=== PATIENT | female | born 1955 | race Caucasian/White ===

== ENCOUNTER → 2022-06-18 | Outpatient (CLI) | payer BC | LOC: PET 10:15 | PROVIDERS: ATTEND Family Medicine | DX: R91.1 Solitary pulmonary nodule (principal) | CPT/HCPCS: 78815; A9552 ==

== ENCOUNTER 2023-05-17 | Outpatient (CLI) | payer BC | END 2023-05-17 08:39 | disposition home or self-care (01) | DX: Z12.31 Encounter for screening mammogram for malignant neoplasm of breast (principal); Z80.3 Family history of malignant neoplasm of breast; Z91.89 Other specified personal risk factors, not elsewhere classified ==

== ENCOUNTER 2023-10-01 10:52 | Outpatient (CLI) | payer MEDICARE, OTHER ==
[2023-10-01 12:43] LABS: #Basophils 0.04 10x3/uL (0.0-0.2); #Eosinphils 0.13 10x3/uL (0.0-0.5); #Monocytes 0.39 10x3/uL (0.0-1.1); %Basophils 0.6 % (0.0-2.0); %Eosinophils 1.9 % (0.0-6.0); %Lymphocytes 33.9 % (18.0-47.0); %Monocytes 5.6 % (0.0-10.0); %Neutrophils 57.4 % (40.0-75.0); Hematocrit 40.7 % (34.9-44.5); Hemoglobin 14.2 g/dL (12.0-15.5); Mean Corpuscular HGB CONC 34.9 g/dL (32.0-36.0); Mean Corpuscular Volume 91.7 fL (81.6-98.3); Platelet Count 213 10x3/uL (150-450); RBC Distribution Width 13.2 % (11.5-14.5); Red Blood Cell (RBC) Count 4.44 10x6/uL (3.90-5.03)
[2023-10-01 12:55] LABS: INR-International Normal Ratio 0.9; Prothrombin Time 10.3 sec (9.5-12.1)
[2023-10-01 12:58] LABS: Bilirubin Neg (Negative); Blood, Urine 10 (Negative); Clarity Clear (Clear); Glucose, Urine (Dipstick) 50 mg/dL (Negative); Ketone, Urine Negative (Negative); Leukocyte 25 (Negative); Nitrite Negative (Negative); Protein, Urine (Dipstick) 30 mg/dl (Neg-Trace); Specific Gravity, Urine 1.025 (1.005-1.030); Urobilinogen Normal mg/dL (Less than 2)
[2023-10-01 13:03] LABS: Anion Gap 14 mmol/L (10-20); BUN (Urea Nitrogen) 12 mg/dL (9.8-20.1); Calc. Creatinine Clearance 0 mL/min (70-130); Calcium 9.7 mg/dL (7.8-10.44); Carbon Dioxide 24 mmol/L (23-31); Chloride 107 mmol/L (98-107); Estimated GFR 79; Glucose 129 mg/dL (80-115); Potassium 4.1 mmol/L (3.5-5.1); Sodium 141 mmol/L (136-145)
== END 2023-10-01 10:53 | disposition home or self-care (01) ==
LOC: LABBT 10:52
PROVIDERS: ATTEND Orthopaedic Surgery
DX: Z01.818 Encounter for other preprocedural examination (principal); M17.12 Unilateral primary osteoarthritis, left knee; I51.7 Cardiomegaly
CPT/HCPCS: 71046; 80048; 81003; 85025; 85610; 87081; 93005; 93010

== ENCOUNTER 2023-10-06 07:05 | Observation (INO) | payer OTHER, MEDICARE ==
[2023-10-01 11:17] VITALS: BMI 34.7
[2023-10-06] MEDS ORDERED: Vancomycin (BATCH) 1.5 GM/300 ML BAG ONE (08:25)
[2023-10-06] MEDS ORDERED: Midazolam HCl 2 mg/2 ml Vial ONE (09:00)
[2023-10-06] MEDS ORDERED: fentaNYL 50 mcg/mL 1 mL Vial ONE ×3 (09:00→13:11)
[2023-10-06] MEDS ORDERED: Bupivacaine PF 0.5% 30 ML VIAL ONE (09:00)
[2023-10-06] MEDS ORDERED: Bupivacaine HCl 0.5%/Epinephrine 1:200,000/PF 30 ml Vial ONE (09:20)
[2023-10-06] MEDS ORDERED: fentaNYL PF 100 MCG/2 ML SYRINGE ONE (09:25)
[2023-10-06] MEDS ORDERED: PROPOFOL 20 ML ONE (09:26)
[2023-10-06] MEDS ORDERED: Bupivacaine 0.25% HCL 30 ML VIAL ONE (09:26)
[2023-10-06] MEDS ORDERED: fentaNYL 50 mcg/mL 1 mL Vial SLOW IVP PRN (09:34)
[2023-10-06] MEDS ORDERED: Sodium Chloride 0.9% 100 ML ONE ×2 (09:35→09:37)
[2023-10-06] MEDS ORDERED: CEFAZOLIN 2 GM VIAL ONE (09:35)
[2023-10-06] MEDS ORDERED: Tranexamic Acid 1,000 MG/10 ML VIAL ONE (09:35)
[2023-10-06] MEDS ORDERED: Ropivacaine 0.2% 550 ML 550 ML NERVE BLCK SCH (09:45)
[2023-10-06] MEDS ORDERED: traMADol HCl 50 MG TAB PO PRN (09:45)
[2023-10-06] MEDS ORDERED: HYDROcodone/Acetaminophen 10/325 mg Tablet PO PRN ×2 (09:45)
[2023-10-06] MEDS ORDERED: Zolpidem Tartrate 5 MG TAB PO PRN ×2 (09:45→12:09)
[2023-10-06] MEDS ORDERED: Metoclopramide HCl 10 MG (2 mL) VIAL ONE (10:10)
[2023-10-06] MEDS ORDERED: diphenhydrAMINE 50 MG/ML VIAL ONE (10:10)
[2023-10-06] MEDS ORDERED: Lidocaine 1% PF 5 ML VIAL ONE (10:10)
[2023-10-06] MEDS ORDERED: ePHEDrine Sulfate 50 MG/10 ML VIAL ONE (10:33)
[2023-10-06] MEDS ORDERED: Dexamethasone 4 mg/ml Vial ONE (11:39)
[2023-10-06] MEDS ORDERED: Ondansetron PF 4 MG/2 ML Vial ONE (11:39)
[2023-10-06] MEDS ORDERED: Ketorolac Tromethamine 30 MG (1 mL) VIAL ONE (11:49)
[2023-10-06] MEDS ORDERED: Acetaminophen 325 MG TAB PO PRN (12:09)
[2023-10-06] MEDS ORDERED: Ondansetron PF 4 MG/2 ML Vial IVP PRN (12:09)
[2023-10-06] MEDS ORDERED: diphenhydrAMINE 25 MG CAP PO PRN (12:09)
[2023-10-06] MEDS ORDERED: Promethazine HCl 25 MG/ML VIAL IM PRN (12:09)
[2023-10-06] MEDS ORDERED: Lorazepam 1 MG TAB PO PRN (12:11)
[2023-10-06] MEDS ORDERED: Tranexamic Acid 1,000 MG in Sodium Chloride 0.9% 100 ML IVPB SCH (12:15)
[2023-10-06] MEDS ORDERED: Promethazine HCl 25 MG/ML VIAL ONE (13:27)
[2023-10-06] MEDS ORDERED: Rimegepant Sulfate [Nurtec Odt] 75 MG Tab.Rapdis PO PRN (14:44)
[2023-10-06] MEDS ORDERED: SUMAtriptan Succinate 50 MG TAB PO PRN (14:45)
[2023-10-06] MEDS ORDERED: valACYclovir 500 MG TAB PO PRN (14:46)
[2023-10-06] MEDS: Sodium Chloride 0.9% 1,000 ML IV SCH (14:59)
[2023-10-06] MEDS: Ketorolac Tromethamine 30 MG (1 mL) VIAL IVP SCH (15:01)
[2023-10-06] MEDS: Ondansetron PF 4 MG/2 ML Vial IVP PRN (15:06)
[2023-10-06] MEDS: CEFAZOLIN 2 GM in Sodium Chloride 0.9% 100 ML IVPB SCH (17:54)
[2023-10-06] MEDS: Promethazine HCl 25 MG/ML VIAL IM PRN (17:56)
[2023-10-06] MEDS: Sertraline 100 MG TAB PO SCH (20:19)
[2023-10-06] MEDS: Senokot S 8.6-50 MG TAB PO SCH (20:19)
[2023-10-06] MEDS: Aspirin 81 mg Enteric Coated Tablet PO SCH (20:19)
[2023-10-06] MEDS: Atorvastatin Calcium 40 MG TAB PO SCH (20:19)
[2023-10-06] MEDS: Ferrous Gluconate 324 MG TAB PO SCH (20:19)
[2023-10-06] MEDS: traMADol HCl 50 MG TAB PO PRN (20:19)
[2023-10-06] MEDS: Vancomycin (BATCH) 1.5 GM in Premix 1 BAG IVPB SCH (20:22)
[2023-10-07] MEDS: Valsartan 80 MG TAB PO SCH (08:50)
[2023-10-07] MEDS: Pantoprazole DR 40 MG TAB PO SCH (08:50)
[2023-10-07] MEDS: Topiramate 25 MG TAB PO SCH (08:50)
[2023-10-07] MEDS: Multivitamin W/ Minerals 1 TAB PO SCH (08:50)
[2023-10-07 09:03] LABS: Hematocrit 31.9 % (36.0-47.0); Hemoglobin 10.5 g/dL (12.0-16.0); Mean Corpuscular HGB CONC 32.9 g/dL (32.0-36.0); Mean Corpuscular Hemoglobin 31.3 pg (27.0-31.0); Mean Corpuscular Volume 94.9 fL (78.0-98.0); Mean Platelet Volume 10.8 fL (7.4-10.4); Platelet Count 171 10x3/uL (130-400); RBC Distribution Width 13.6 % (11.5-14.5); Red Blood Cell (RBC) Count 3.36 mill/uL (4.20-5.40)
[2023-10-07 11:29] VITALS: BP 115/71; TEMP 98.7
[2023-10-07] MEDS ORDERED: Ondansetron ODT 4 MG TAB PO PRN (12:06)
== END 2023-10-07 12:44 | disposition home or self-care (01) ==
LOC: SDC 07:05 → SURG A 12:12
PROVIDERS: ADMIT Orthopaedic Surgery; ATTEND Orthopaedic Surgery
PROC: 0SRD0JA Replacement of Left Knee Joint with Synthetic Substitute, Uncemented, Open Approach (ICD-10-PCS; principal; 2023-10-06)
DX: M17.12 Unilateral primary osteoarthritis, left knee (principal)
CPT/HCPCS: 0055T; 27447; 64447; 36415; 85027; A4306; C1713; C1776; C1889; J0665; J1100; J1200; J1885; J2250; J2405; J2550; J2704; J2765; J2795; J3010; J3370; J3490; J7050

== ENCOUNTER 2024-05-12 09:32 | Day surgery (SDC) | payer MEDICARE ==
[2024-04-24 10:06] VITALS: BMI 32.1
[2024-05-12] MEDS ORDERED: Lidocaine 1% (PF) 30 ML VIAL ONE (10:58)
[2024-05-12] MEDS ORDERED: Lidocaine 2% PF 5 ML VIAL ONE (11:01)
[2024-05-12] MEDS ORDERED: PROPOFOL 20 ML ONE (11:01)
[2024-05-12] MEDS ORDERED: fentaNYL 50 mcg/mL 1 mL Vial ONE (11:01)
[2024-05-12] MEDS ORDERED: Ondansetron PF 4 MG/2 ML Vial ONE (11:02)
[2024-05-12] MEDS ORDERED: Dexamethasone 20 MG/5 ML VIAL ONE (11:02)
[2024-05-12] MEDS ORDERED: CEFAZOLIN 2 GM VIAL ONE (11:03)
[2024-05-12] MEDS ORDERED: PHENYLEPHRINE-NS 100 MCG/ML 10 ML SYRINGE ONE (11:28)
== END 2024-05-12 15:01 | disposition home or self-care (01) ==
LOC: SDC 09:32
PROVIDERS: ATTEND Orthopaedic Surgery
PROC: 01N50ZZ Release Median Nerve, Open Approach (ICD-10-PCS; principal; 2024-05-12)
PROC: 0LN70ZZ Release Right Hand Tendon, Open Approach (ICD-10-PCS; 2024-05-12)
DX: G56.01 Carpal tunnel syndrome, right upper limb (principal); M65.341 Trigger finger, right ring finger; I10 Essential (primary) hypertension; E11.9 Type 2 diabetes mellitus without complications; G43.909 Migraine, unspecified, not intractable, without status migrainosus; K21.9 Gastro-esophageal reflux disease without esophagitis; F41.9 Anxiety disorder, unspecified; F32.A Depression, unspecified; Z96.652 Presence of left artificial knee joint; Z88.8 Allergy status to other drugs, medicaments and biological substances; Z79.899 Other long term (current) drug therapy; Z91.018 Allergy to other foods
CPT/HCPCS: 26055; 64721; A6223; J1100; J2405; J2704; J3010